=== PATIENT | male | born 1955 | race Caucasian/White ===

== ENCOUNTER 2022-12-21 10:00 | Outpatient (RCR) | payer MEDICARE, OTHER, SELFPAY ==
--- NOTE | 2022-08-25 10:29 | HP.PTEVAL_ITS ---
Patient's Visit Information MICHELLE RATLIFF is a 67 year old M referred to Physical Therapy by SOHAN BORDEN with a diagnosis of PD. Date of Evaluation: 08/25/22 Physical Therapist: ELIUD Garcia - Visit Plan Frequency: 2x /Week Duration: 6 Weeks Plan: 2X/ week for 6 weeks for high level balance, brain work, dual tasking, gait training, postural exercises, rolling over in bed exs with HEP - Subjective Pt has been dx with PT for about a year now. He is retired. 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 He did one class here at and plans on sticking with the class. He is having trouble with an ulnar nerve issue with his R hand 3 years ago and has no improvement. He has an appt with another ortho Dr next month. He has neuropathy in his feet from diabetes for 25 years. He feels that his balance is bad. He has fallen once cause he backed into the ledge of the shower and fell into the shower. he was able to get back up. Sit to stand: he struggles to get out of a deep chair. He has a home all on one level. When he does stairs he does them he uses a railing and alternating unless he has something in his arms. He reports no freezing episodes where he can not move. He has a terrible time rolling over in bed. He struggles getting out of a car. He has an artificial sphincter so he has to be careful that he does not leak. he tries to work out 3X/ week and has issues with both of his shouders and get sharp pain and has an appt with an ortho Dr to see what is going on with that. His Chiropractor said he has compressed discs in his LB. - Objective Gait: Walks with shorter strides, flexed trunk. R and L feet does not clear stance leg. Occ catch R foot on the ground. Walking BW: heels almost touching (did step L heel on the R heel) and small steps. stairs: one rail and up and down recip... pt struggles to clear foot off the step. LE MMT: R hip flex 19.5 and L hip flex 20.1. R knee ext 26.6 and L 26.9. R knee flex 11.6 and 14.3. FGA: 16. TU:50. Standing opp arm and leg: X 10 on each leg... after he got the sequence down. sit to stand; able to get up without the use of his arms on first attempt. Posture: flexed trunk, rounded shoulders - Balance/Special Test Scores Functional Gait Assessment Score: 16 % Disability: 46.6700 Lower Extremity Functional Score: 35 - Goals Goal 1:: I HEP Goal Time Frame: 4-6 Weeks Goal 2:: Increase balance by increase score on FGA (score was 16 at eval) Goal Time Frame: 4-6 Weeks Goal 3:: Be able to complete X 20 standing opp arm and leg with counting Goal Time Frame: 4-6 Weeks Goal 4:: Be able to walk back to treatment rooms with larger steps, more upright posture Goal Time Frame: 4-6 Weeks - Anticipated Interventions Patient/Client Instruction: Educate patient on: Condition, Plan of Care For the Purpose of:: To increase ROM, To improve nutrient delivery to tissue, To improve muscle performance and motor function, To improve ability to perform ADL's, To increase tolerance to activity/condition/position, To improve performance and independence with ADL's, To decrease level of supervision to perform tasks, To improve gait and locomotor functions, To increase flexibility/ROM, To improve endurance, To improve balance, To improve safety with gait Therapeutic Exercise to Include: Strength training, Endurance training, Balance training, Postural training, Flexibilty training, Gait and locomotor training, Neuromotor development, Active ROM For the Purpose of:: To improve nutrient delivery to tissue, To improve muscle performance and motor function, To improve ability to perform ADL's, To increase tolerance to activity/condition/position, To improve performance and independence with ADL's, To improve ability of physical actions for home/community/work/leisure, To improve gait and locomotor functions, To increase flexibility/ROM, To improve endurance, To improve balance, To improve safety with gait Functional Training to Include: Gait training For the Purpose of:: To improve gait and locomotor functions, To improve safety with gait Thank you for the opportunity to evaluate your patient. For Medicare and Medicare HMO plans, please review the plan of care and approve it. It will need to be FAXED BACK to us at [phone] for Medicare purposes. For Medicare only, by signing this I certify the plan of care. Please let me know if there are questions or concerns regarding this plan of care. Physician Signature: Date:
--- NOTE | 2022-10-02 11:45 | HP.PTREVAL_ITS ---
SOHAN BORDEN, It has been my pleasure to treat MICHELLE RATLIFF over the last 10 visits for PD. Please see the progress note below for an update on the physical therapy plan of care! Subjective: Pt reports that he is doing well. He had a home sleep apnea test last night and did not sleep well. He feels that PT is really helping him. PT is helping him with balance, strength, better with bed mobility. He still struggles with his shoulders bothering him. Objective/Function: FGA: 19. [place] arm and leg in standing: X 15 on each side with CGA. Supine to sit : Able with mod A. Gait: Walks with flexed posture at the hips and decreased arm swing with better. Tight B hip flexors Plan Plan: 2X/ week for 8 weeks for Bed mobility, supine to sit strength, hip fkexion stretches. high level balance, brain work, dual tasking, gait training, postural exercises, rolling over in bed exs with HEP Balance/Gait/Functional tests - Balance/Special Test Scores Functional Gait Assessment Score: 19 % Disability: 36.6700 Lower Extremity Functional Score: 43 Goals Goal 1:: I HEP Goal Time Frame: 4-6 Weeks Goal Progress: Goal Met Goal 2:: Increase balance by increase score on FGA (score was 16 at eval) Goal Time Frame: 4-6 Weeks Goal 3:: Be able to complete X 20 standing opp arm and leg with counting Goal Time Frame: 4-6 Weeks Goal Progress: Progressing Goal 4:: Be able to walk back to treatment rooms with larger steps, more upright posture Goal Time Frame: 4-6 Weeks Goal 5:: Be able to scoot across the mat table on his back with more ease Goal Progress: Progressing Goal 6:: Be able to go supine to sit with min A Anticipated Interventions Patient/Client Instruction: Educate patient on: Condition, Plan of Care For the Purpose of:: To increase ROM, To improve nutrient delivery to tissue, To improve muscle performance and motor function, To improve ability to perform ADL's, To increase tolerance to activity/condition/position, To improve performance and independence with ADL's, To decrease level of supervision to perform tasks, To improve gait and locomotor functions, To increase flexibility/ROM, To improve endurance, To improve balance, To improve safety with gait Therapeutic Exercise to Include: Strength training, Endurance training, Balance training, Postural training, Flexibilty training, Gait and locomotor training, Neuromotor development, Active ROM For the Purpose of:: To improve nutrient delivery to tissue, To improve muscle performance and motor function, To improve ability to perform ADL's, To increase tolerance to activity/condition/position, To improve performance and independence with ADL's, To improve ability of physical actions for home/community/work/leisure, To improve gait and locomotor functions, To increase flexibility/ROM, To improve endurance, To improve balance, To improve safety with gait Functional Training to Include: Gait training For the Purpose of:: To improve gait and locomotor functions, To improve safety with gait Please do not hesitate to contact me at [phone] by phone or if you have questions or concerns regarding this new plan of care! Sincerely, Aparna Chandler MPT
--- NOTE | 2022-11-24 09:55 | HP.PTEVAL2 ---
Patient's Visit Information Visit Information Visit Information: MICHELLE RATLIFF is a 67 year old M referred to Physical Therapy by SOHAN BORDEN with a diagnosis of R shoulder pain. Date of Evaluation: 11/24/22 Physical Therapist: [place], PT, ATC Visit Plan Frequency: 2x /Week Duration: 4-6 Weeks Plan: R shoulder rot cuff strengthening, scap stab ex's, UBE, and HEP Subjective Subjective: Pt reports he has had R shoulder pain for greater than one year. 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 Pt reports he is R hand dominant. Pt notes his pain had an insidious onset in nature. 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 Pt reports difficulty with getting to sleep secondary to R shoulder pain. Pt denies tingling or numbness in R UE at this time. Pt reports he has increased pain with reaching behind his back, attempting to reach overhead, and reaching out in front of him. Pt reports he has a hard time getting out of bed secondary to R shoulder pain. Pt reports exercising in a pool helps to decrease his pain by loosening up his R shoulder. 0/10 pain while sitting at rest, 8/10 pain at worst Pain R shoulder: Intensity: 0 Pain Intensity Range: 8 Objective Objective: Neuro: B UE sensation is WNL to light touch with exception to R UE lateral hand. B bicipital reflex= 2/3 Palpation: Minor soreness on R shoulder supraspinatus. No obvious deformity at this time ROM: L shoulder flex= 140, abd= 130, ER= 45, IR= WFL; R shoulder flex= 135, abd= 125, ER= 50, IR= WFL MMT: L shoulder flex= 9, abd= 25, ER= 15, IR= 25; R shoulder flex= 22, abd= 32, ER= 22, IR= 22 #F Special tests: Pos HK impingement test Goals Goal 1:: Decrease R shoulder pain x 50% to aid with sleep Goal Time Frame: 4-6 Weeks Goal 2:: Increase R shoulder flex and abduction ROM x 20 degrees to aid with overhead lifting Goal Time Frame: 4-6 Weeks Goal 3:: Increase R shoulder strength x 5-10#F to aid with IADL's Goal Time Frame: 4-6 Weeks Goal 4:: I with HEP Goal Time Frame: 4-6 Weeks Rehabilitation Potential Physical Therapy Diagnosis: Pt has R shoulder pain, limited ROM, and difficulty with overhead activity secondary to R shoulder impingement syndrome. Rehabilitation Potential: Good Anticipated Interventions Patient/Client Instruction: Educate patient on: Condition and Plan of Care For the Purpose of:: To improve self management Therapeutic Exercise to Include: Strength training, Active ROM and Scapular Strength/Stabilization For the Purpose of:: To decrease pain, To increase ROM and To improve muscle performance and motor function Cryotherapy (ice pack, ice massage): Yes For the Purpose of:: To decrease pain text: Thank you for the opportunity to evaluate your patient. For Medicare and Medicare HMO plans, please review the plan of care and approve it. It will need to be FAXED BACK to us at [phone] for Medicare purposes. For Medicare only, by signing this I certify the plan of care. Please let me know if there are questions or concerns regarding this plan of care. Physician Signature: Date:
--- NOTE | 2022-12-25 13:57 | HP.PTDCSUM ---
Discharge Summary D/C summary: It has been my pleasure to treat MICHELLE RATLIFF referred by SOHAN BORDEN, with the diagnosis of PD for a total of 17 visit(s). Discharge Date: Please see the following information for a summary of their discharge status. Subjective Subjective: Got a bee sting on my head. Pain Bilat shoulders: Pain Intensity (Out of 10): Unrated Overall Improvement % Improvement: 25 Objective Objective/Function: Pt will be gone from PT for 2 weeks due to appts and family vacation. Is challenged with SLS- also makes his posture more FW due to concentration he uses. Showed 4 gym machines to for him to use for LE strength/posture. Goals Goal 1:: I HEP Goal Progress: Goal Met Goal 2:: Increase balance by increase score on FGA (score was 16 at eval) Goal 3:: Be able to complete X 20 standing opp arm and leg with counting Goal Progress: Progressing Goal 4:: Be able to walk back to treatment rooms with larger steps, more upright posture Goal Progress: Progressing Goal 5:: Be able to stand on one foot Goal Progress: Progressing Goal 6:: Be able to go supine to sit with min A Plan Plan: 2X/ week for 3 additonal weeks for higher level balance including Single leg balance to pull on pants easier D/C Information d/c sentence: If there are questions or concerns regarding this patient's physical therapy, please feel free to call me at [phone]. Thank you for the referral of this patient. Sincerely, Aparna Chandler, MPT Balance/Gait/Functional tests Balance/Special Test Scores Functional Gait Assessment Score: 19 % Disability: 36.6700 Lower Extremity Functional Score: 40 Quick DASH Score: 40.9075 Improvement % Improvement: 25
== END 2022-12-21 19:00 | disposition home or self-care (01) ==
LOC: PT 10:00
PROVIDERS: PCP Student in an Organized Health Care Education/Training Program; Referring Provider Nurse Practitioner; Visit Provider Nurse Practitioner
DX: G20 Parkinson's disease (principal)
CPT/HCPCS: 97110; 97161; 97530

== ENCOUNTER 2023-09-26 17:30 | Outpatient (RCR) | payer MEDICARE, OTHER, SELFPAY ==
--- NOTE | 2023-08-27 15:48 | HP.PTEVAL_ITS ---
Patient's Visit Information Visit Information Visit Information: MICHELLE RATLIFF is a 68 year old M referred to Physical Therapy by Dr. Lior Estes MD with a diagnosis of PD. Date of Evaluation: 08/27/23 Physical Therapist: ELIUD Garcia Visit Plan Frequency: 2x /Week Duration: 2 Months Plan: 2X/ week for 8 weeks for (stretching and strengthening of R ankle and knee/hip abdiel DF), gait training (equal step length and use of his R hip/knee to help compensate for lack of foot movement, endurance walking to strengthen and decrease the number of times he scuffs his R foot or stumbles, R LE strength, functional balance with HEP HEP: seated toe raises and seated gastroc stretch Subjective Subjective: Pt is having elbow surgery in middle of October. He reports that his R foot will not raise up at all with walking. He felt it was a gradual process. Dr Estes has not seen that he can not pick his toes up on the R. He thinks that he sees Dr Estes in a few weeks, Dr Estes is pushing him to exercise everyday. He has fallen multiple times (More of a stumble/fall). He reports that he can get up from the floor with a little bit of difficulty. He has some occ back pain when he is leaning over. Pain Back pain: Pain Intensity (Out of 10): 0 Objective Objective: Gait: walks with no heel to toe gait pattern on the R LE and he walks with decrease stride length on the R compared to the L. He also does not have as much Quad strength on the R compared to the L and fatigues quick on the R Gait with rollator around small PT area and he tripped on R foot 5 times He is unable to toe raise on the R LE but us able to heel raise on B feet LE MMT R hip flex 9.1 and L 10.3 R knee ext 21 and L 24.9 R knee flex 9.3 and L 12.3 R DF2.3 and L 13.6 Pt is able to do at least 15 on each leg (therapist stopped him) opp arm and leg with out messing up FGA 14 Pt has more PROM of his R ankle than he does ACTIVE ROM Balance/Special Test Scores Functional Gait Assessment Score: 14 % Disability: 53.3400 Lower Extremity Functional Score: 28 Goals Goal 1:: I HEP Goal Time Frame: 6-8 Weeks Goal 2:: Increase gait to be able to walk 1 lap around the PT dept with not tripping on his feet at all (tripped 5 time at evid with a rollator) Goal Time Frame: 6-8 Weeks Goal 3:: Be able to walk with equal step length with gait back to the treatment rooms Goal Time Frame: 6-8 Weeks Goal 4:: Improve balance (FGA was 14 at evid) Goal Time Frame: 6-8 Weeks Rehabilitation Potential Rehabilitation Potential: Good Anticipated Interventions Patient/Client Instruction: Educate patient on: Condition and Plan of Care For the Purpose of:: To increase ROM, To improve nutrient delivery to tissue, To improve muscle performance and motor function, To improve ability to perform ADL's, To increase tolerance to activity/condition/position, To improve performance and independence with ADL's, To decrease level of supervision to perform tasks, To improve ability of physical actions for home/communit y/work/leisure, To improve gait and locomotor functions, To improve health of tissue, To decrease soft tissue restriction, To increase flexibility/ROM, To improve endurance, To improve balance and To improve safety with gait Therapeutic Exercise to Include: Strength training, Endurance training, Balance training, Postural training, Flexibilty training, Gait and locomotor training, Passive ROM and Active ROM For the Purpose of:: To increase ROM, To improve nutrient delivery to tissue, To increase oxygenation perfusion, To improve muscle performance and motor function, To improve ability to perform ADL's, To increase tolerance to activity/condition/position, To improve performance and independence with ADL's, To decrease level of supervision to perform tasks, To improve gait and locomotor functions, To improve health of tissue, To increase flexibility/ROM, To improve endurance, To improve balance and To improve safety with gait Functional Training to Include: Gait training For the Purpose of:: To improve gait and locomotor functions, To improve health of tissue, To improve balance and To improve safety with gait Manual Therapy Techniques to Include: Passive ROM For the Purpose of:: To increase ROM and To improve nutrient delivery to tissue Text: Thank you for the opportunity to evaluate your patient. For Medicare and Medicare HMO plans, please review the plan of care and approve it. It will need to be FAXED BACK to us at [phone] for Medicare purposes. For Medicare only, by signing this I certify the plan of care. Please let me know if there are questions or concerns regarding this plan of care. Physician Signature: Date:
--- NOTE | 2023-09-05 15:08 | HP.OTEVAL ---
Patient's Visit Information Visit Information Visit Information: MICHELLE RATLIFF is a 68 year old M, referred to Occupational Therapy by Dr. Lior Estes MD, with a diagnosis of parkinsons with fluctuating manifestations. Date of Evaluation: 09/05/23 Occupational Therapist: Светлана Escalante Subjective Subjective: This 68 year old male referred to skilled OT with dx of Parkinsons. Pt reports B hand nueropathy. x2 sx to RUE on ulnar nerve decompression and then transposition 3 years ago for decompression and about 6 months ago for transposition. reports having therapy after decompression however not after second sx. schedule sx october 28 for L ulnar nerve. pt with no pain and is R handed. pt with difficulty managing fasners, opening jars. pt reports his numbness along D4 and D5 of hand B UEs. OT at this time to provide training in dx, assure AROM provide training in adaptive equipment for return to completion of daily living tasks. Objective Objective/Observation: pt arrives this date with R hand stiffness and B resting hand tremor. ROM Shoulder: wfl Elbow: wfl Forearm: wfl Wrist: wfl CMC: wfl MP: wfl IP: wfl Radial Abduction: wfl Palmar Abduction: wfl Opposition: wfl MP: wfl PIP: wfl DIP: wfl ROM Comments: pt BUE AROM WFL does report increased stiffness with R hand as well as decreased in hand manipulation abilities. Strength Shoulder: L 17.5 R 31.1 Elbow: L 33 R 41 [place] Block Setter: L 80 pounds R 75 pounds Lateral Pinch: L 7 pounds R 9 pounds Tripod Pinch: L 4 pounds R 4 pounds Edema Other: none noted Sensation Sensation Comments: L hand 3.61 R hand 3.22 semme swan Nine Hole Peg Right: 56 sec Left: 36 sec In-Hand Manipulation Finger to Palm Translation: Unable - Right and Mild - Left Shift: Unable - Right and Mild - Left Quick DASH-Disab of Arm,Shoulder& Hand Quick DASH Score: 43.1800 Goals Goal:: pt will improve L shoulder flexion strength to 25 pounds or more for ease and I in day to day tasks pt will improve L elbow flexion strength to 40 pounds or more for ease and I in day to day tasks Goal:: Pt will improve R hand 9 hole peg assessment score to 40 sec or less in order to improve day to day tasks pt will demonstrate the ability to manipulate small peg from finger to palm on RUE in order to improve day to day tasks pt will demonstrate the ability to perform shift in hand manipulation motion with pen RUE for ease and I in day to day tasks pt will demonstrate the ability to manage 5/5 buttons or fasners of various seize for ease and I in self care abilities Goal:: pt will be able to demonstrate / verbalize x2 techniques to assist in improving sensation to B hands before discharge Goal:: pt will improve quick dash score to 25 or less for increase I in self care and day to day tasks Goal:: pt will verbalize/ demonstrate 100% accuracy in joint positioning for decreased B hand symptoms of numbness/ tingling by third session Rehabilitation Rehabilitation Potential: Good Anticipated Interventions Anticipated Interventions: A/AAROM/PROM, Strengthening, Massage, Triggerpoint Release, Sensory Retraining, Modalities, Joint Protection/Energy Conservation, Fine Motor Coord/Albert, Neuro Reeducation, ADL Training, Education re assistive Equipment, Education re Diagnosis, Education re Self Massage Techniques and Home Program Visit Plan Frequency: 2x /Week Duration: 4 Weeks General Plan: AROM/AAROM/PROM massage coordination/ dexterity strengthening ed on positioning and AE TEXT: Thank you for the opportunity to evaluate your patient. For Medicare and Medicare HMO plans, please review the plan of care and approve it. It will need to be FAXED BACK to us at [phone] for Medicare purposes. Please let me know if there are questions or concerns regarding this plan of care. Physician Signature: Date:
== END 2023-09-26 19:00 | disposition home or self-care (01) ==
LOC: PT 17:30
PROVIDERS: PCP Student in an Organized Health Care Education/Training Program; Referring Provider Psychiatry & Neurology Sleep Medicine; Visit Provider Psychiatry & Neurology Sleep Medicine
DX: G20.A2 Parkinson's disease without dyskinesia, with fluctuations (principal); R26.9 Unspecified abnormalities of gait and mobility
CPT/HCPCS: 97110; 97116; 97140; 97162; 97165; 97530